=== PATIENT | male | born 1985 | race African-American/Black ===

== ENCOUNTER 2024-04-01 11:28 | Emergency (ER) | payer OTHER, MEDICAID ==
[~2024-04-01] VITALS: Ht 182.9 cm; Wt 72.6 kg
[2024-04-01 11:39] VITALS: BP 123/76; RESP 16; TEMP 98.2; O2SAT 99
[2024-04-01 12:02] VITALS: PULSE 75
[2024-04-01 13:33] LABS: CLARITY URINE CLEAR (CLEAR); COLOR URINE YELLOW (YELLOW); GLUCOSE URINE NEGATIVE (NEGATIVE); KETONES URINE NEGATIVE (NEGATIVE); LEUKOCYTE ESTERASE URINE 2+ (NEGATIVE); NITRITE URINE NEGATIVE (NEGATIVE); OCCULT BLOOD URINE NEGATIVE (NEGATIVE); PH URINE 6.5 (4.5-8.0); PROTEIN URINE NEGATIVE (NEGATIVE); SPECIFIC GRAVITY URINE 1.014 (1.005-1.030); UROBILINOGEN URINE 0.2 E.U./dL (0.2-1.0)
[2024-04-01 13:43] LABS: RBC URINE NONE SEEN /hpf (0-2); SQUAMOUS EPITHELIAL CELL URINE NONE SEEN /lpf (RARE/1+)
[2024-04-01 13:44] LABS: BACTERIA URINE FEW; YEAST URINE NONE SEEN
[2024-04-01] MEDS ORDERED: LIDOCAINE/EPINEPHR/TETRACAINE 3ML TP ONE (14:30)
[2024-04-01] MEDS: LIDOCAINE/PRILOCAINE CREAM 5 GM TUBE TOP ONE (15:40)
[2024-04-01] MEDS ORDERED: SULF1TAB48 MT (16:03)
== END 2024-04-01 16:38 | disposition home or self-care (01) ==
LOC: ER 11:28
DX: N49.2 Inflammatory disorders of scrotum (principal); L73.9 Follicular disorder, unspecified
CPT/HCPCS: 10060; 76857; 81003; 99284

== ENCOUNTER 2024-07-05 10:24 | Emergency (ER) | payer OTHER, MEDICAID ==
[~2024-07-05] VITALS: Ht 188 cm; Wt 82.0 kg
[~2024-07-05 10:24] MED LIST: SULF1TAB48 MT
[2024-07-05 10:39] VITALS: O2SAT 99
[2024-07-05] MEDS ORDERED: TOPUD MT (16:53)
[2024-07-05] MEDS ORDERED: IBUP-1525 MT (16:53)
[2024-07-05 17:05] VITALS: BP 120/75; PULSE 70; RESP 18; TEMP 36.72516; O2SAT 99
== END 2024-07-05 17:06 | disposition home or self-care (01) ==
LOC: ER 10:38
DX: M25.562 Pain in left knee (principal)
CPT/HCPCS: 99283; 73560; L1830